=== PATIENT | female | born 1990 | race American Indian/Alaskan Native ===

== ENCOUNTER 2018-04-11 19:29 | Emergency (ER) | payer SELFPAY ==
[2018-04-11 21:17] LABS: Basophils % (Auto) 0.4 % (0.0-1.8); Hematocrit 34.5 % (30.3-42.9); Hemoglobin 10.9 gm/dl (10.1-14.3); Lymphocytes # (Auto) 1.4 K/mm3 (1.2-5.4); Lymphocytes % (Auto) 19.6 % (13.4-35.0); Mean Corpuscular HGB Conc 32 % (30-34); Mean Corpuscular Hemoglobin 27 pg (28-32); Mean Corpuscular Volume 84 fl (79-97); Monocytes # (Auto) 0.5 K/mm3 (0.0-0.8); Monocytes % (Auto) 7.1 % (0.0-7.3); Platelet Count 333 K/mm3 (140-440)
[2018-04-11 21:26] LABS: Alanine Aminotransferase 71 units/L (7-56); Albumin 5.1 g/dL (3.9-5); BUN/Creatinine Ratio 12; Blood Urea Nitrogen 14 mg/dL (7-17); Hemolysis Index 4
[2018-04-11 21:47] LABS: Bacteria,Urine 1+ /HPF (Negative); Bilirubin,Urine NEG (Negative); Blood,Urine NEG (Negative); Color,Urine Yellow (Yellow); Hyaline Casts,Urine 17 /LPF; Mucus,Urine 3+ /HPF
[2018-04-11 21:55] LABS: Benzodiazepines Screen,Urine PRESUMPTIVE NEGATIVE; Cocaine Screen,Urine PRESUMPTIVE NEGATIVE; Methadone Screen,Urine PRESUMPTIVE NEGATIVE; Opiate Screen,Urine PRESUMPTIVE NEGATIVE
[2018-04-11 22:11] LABS: Amphetamine Screen,Urine PRESUMPTIVE POSITIVE; Cannabinoid Screen,Urine PRESUMPTIVE POSITIVE
--- NOTE | 2018-04-11 22:12 | Emergency Department Report ---
ED Psych HPI - General Chief Complaint: Altered Mental Status Stated Complaint: FATIGUE Time Seen by Provider: 04/11/18 20:59 Source: patient Mode of arrival: Wheelchair - History of Present Illness Initial Comments: History obtained from nursing documentation. The patient likely has mental illness with known adverse reaction and rash to Abilify. For the last 7 days she's auditory hallucinations making her do stupid things like walking on the road without shoes burning her feet. It was noted that she had paranoia. The patient refuses to give further information. She states that she has a headache. MD Complaint: altered mental status, other - Related Data Allergies Allergy/AdvReac Type Severity Reaction Status Date / Time aripiprazole [From Abilify] AdvReac Rash Verified 04/11/18 20:18 ED Review of Systems ROS: Stated complaint: FATIGUE Other details as noted in HPI Comment: All other systems reviewed and negative Constitutional: denies: fever, malaise Cardiovascular: denies: chest pain ED Past Medical Hx - Social History Smoking Status: Current Every Day Smoker Substance Use Type: Marijuana ED Physical Exam - General Limitations: Physical Limitation General appearance: alert, in no apparent distress - Head Head exam: Present: atraumatic, normocephalic - Eye Eye exam: Present: normal appearance - ENT ENT exam: Present: mucous membranes moist - Neck Neck exam: Present: normal inspection. Absent: tenderness, meningismus - Respiratory Respiratory exam: Present: normal lung sounds bilaterally. Absent: respiratory distress, wheezes, rales, rhonchi - Cardiovascular Cardiovascular Exam: Present: regular rate, normal rhythm, normal heart sounds. Absent: bradycardia, tachycardia, systolic murmur, diastolic murmur, rubs, gallop - GI/Abdominal GI/Abdominal exam: Present: soft, normal bowel sounds. Absent: distended, tenderness, guarding, rebound - Extremities Exam Extremities exam: Present: normal inspection - Back Exam Back exam: Present: normal inspection - Neurological Exam Neurological exam: Present: alert, oriented X3 - Psychiatric Psychiatric exam: Present: agitated, flat affect, other (refuses to give much history. She has normal speech. She has normal purposeful movements.) - Skin Skin exam: Present: warm, dry, intact, normal color. Absent: rash ED Course Vital Signs 04/11/18 04/11/18 20:07 21:39 Temperature 98.7 F 98.6 F Pulse Rate 87 88 Respiratory 14 16 Rate Blood Pressure 110/71 Blood Pressure 112/76 [Left] O2 Sat by Pulse 100 99 Oximetry ED Medical Decision Making - Lab Data Result diagrams: 04/11/18 20:28 04/11/18 20:28 Laboratory Results - last 24 hr 04/11/18 04/11/18 04/11/18 20:28 20:28 21:20 WBC 7.3 RBC 4.10 Hgb 10.9 Hct 34.5 MCV 84 MCH 27 L MCHC 32 RDW 17.0 H Plt Count 333 Lymph % (Auto) 19.6 [place] % (Auto) 7.1 Eos % (Auto) 0.0 Baso % (Auto) 0.4 Lymph # 1.4 [place] # 0.5 Eos # 0.0 Baso # 0.0 Seg Neutrophils % 72.9 H Seg Neutrophils # 5.3 Sodium 138 Potassium 4.2 Chloride 97.3 L Carbon Dioxide 23 Anion Gap 22 BUN 14 Creatinine 1.2 Estimated GFR > 60 BUN/Creatinine Ratio 12 Glucose 77 Calcium 10.0 Total Bilirubin 0.80 AST 26 ALT 71 H Alkaline Phosphatase 57 Total Protein 8.1 Albumin 5.1 H Albumin/Globulin Ratio 1.7 Urine Color Yellow Urine Turbidity Clear Urine pH 5.0 Ur Specific [place] 1.017 Urine Protein 100 mg/dl Urine Glucose (UA) Neg Urine Ketones 20 Urine Blood Neg Urine Nitrite Neg Urine Bilirubin Neg Urine Urobilinogen 2.0 Ur Leukocyte Esterase Neg Urine WBC (Auto) 10.0 H Urine RBC (Auto) 5.0 U Epithel Cells (Auto) 4.0 Urine Bacteria (Auto) 1+ Hyaline Casts 17 Urine Mucus 3+ Urine Opiates Screen Urine Methadone Screen Ur Barbiturates Screen Ur Phencyclidine Scrn U Benzodiazepines Scrn Urine Cocaine Screen 04/11/18 21:20 WBC RBC Hgb Hct MCV MCH MCHC RDW Plt Count Lymph % (Auto) [place] % (Auto) Eos % (Auto) Baso % (Auto) Lymph # [place] # Eos # Baso # Seg Neutrophils % Seg Neutrophils # Sodium Potassium Chloride Carbon Dioxide Anion Gap BUN Creatinine Estimated GFR BUN/Creatinine Ratio Glucose Calcium Total Bilirubin AST ALT Alkaline Phosphatase Total Protein Albumin Albumin/Globulin Ratio Urine Color Urine Turbidity Urine pH Ur Specific [place] Urine Protein Urine Glucose (UA) Urine Ketones Urine Blood Urine Nitrite Urine Bilirubin Urine Urobilinogen Ur Leukocyte Esterase Urine WBC (Auto) Urine RBC (Auto) U Epithel Cells (Auto) Urine Bacteria (Auto) Hyaline Casts Urine Mucus Urine Opiates Screen Presumptive negative Urine Methadone Screen Presumptive negative Ur Barbiturates Screen Presumptive negative Ur Phencyclidine Scrn Presumptive negative U Benzodiazepines Scrn Presumptive negative Urine Cocaine Screen Presumptive negative Vital Signs - 24 hr 04/11/18 04/11/18 20:07 21:39 Temperature 98.7 F 98.6 F Pulse Rate 87 88 Respiratory 14 16 Rate Blood Pressure 110/71 Blood Pressure 112/76 [Left] O2 Sat by Pulse 100 99 Oximetry - Medical Decision Making Ms. Gilliland is a 27 yo female who probably mental illness who presents with acute psychosis and paranoia. She did speak to nursing staff. No indication of medical condition which needs further stabilization. She is awake and alert. She is not altered. She just does not cooperate with history taking. I do suspect contribution of possible drugs. UDS positive for amphetamine. Awaiting mental health consultation. Placed on 1013 for high risk of harming patient with poor insight. Patient is unable to cooperate which the plan. Ms. Gilliland is medically clear for psychiatric care. Critical care attestation.: If time is entered above; I have spent that time in minutes in the direct care of this critically ill patient, excluding procedure time. ED Disposition Clinical Impression: Acute psychosis Disposition: [id number]/[facility]-70 ANOTHER TYPE HLTHCARE Is pt being admited?: No Does the pt Need Aspirin: No Condition: Stable
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
[2018-04-13 02:10] LABS: HCG Qualitative,Urine Negative (Negative)
--- NOTE | 2018-04-13 17:40 | Progress Note ---
Subjective - Reason for Consult Consult date: 04/13/18 Reason for consult: psychiatric Requesting physician: GIOVANNI SIDDIQUI - Chief Complaint Chief complaint: " Hearing voices" Subjective history: 27-year-old female who presented to the emergency room complaining of auditory hallucinations commanding her. Patient was positive for methamphetamines and marijuana. Today patient stated that she feels "better" after she got some sleep. Patient reported that she had not slept in the last few days and is walking around and hot sun and that must have "made me delirious, and I passed out", was the reason that the patient gave her current presentation in the emergency room. She was minimizing her drug use. Today patient denied any suicidal or homicidal ideations and denies any auditory or visual hallucinations. Patient reported that she had recently relapsed on methamphetamine and has been using it for the last few days, to help her focus. Mental Status Exam - Vital signs Last Vital Signs Temp 98.2 F 04/13/18 10:00 Pulse 76 04/13/18 10:00 Resp 18 04/13/18 10:00 BP 93/52 04/13/18 10:00 Pulse Ox 100 04/13/18 10:00 - Exam Narrative exam: General Appearance: Casually dressed-hospital gown Attitude/Behavior: Cooperative, evasive, and guarded Sensorium: Distracted Orientation: Alert and oriented x 4 (person, place, time, and situation) Psychomotor and Musculoskeletal Activity: Ambulatory Mood: " Sad and down" Affect: Constricted Speech/Language: Regular rate and tone, delayed at times Thought Process: Circumstantial Though Content: Paranoid Perception: Denies. Internally preoccupied Concentration/Attention: Impaired Suicidal Ideation/Plan: Patient denies Homicidal Ideation/Plan: Patient denies Judgment: Variable Insight: Variable Assessment and Plan Hx of Schizoaffective Disorder. Methamphetamine use disorder. Patient is cooperative but evasive and guarded throughout the assessment. Although patient denies and attempts to minimize symptoms psychosis is evident. She reports improved energy, sleep, and appetite. She denies SI/HI. DDx: r/o Psychosis Recommendations/Plan: 1. Continue 1013 and reassess in 24 hours. 2. Gain collateral to determine proper disposition. 3. continue Seroquel 100mg po QHS mood/psychosis. Discussed metabolic side effects. Patient verbalizes understanding. 4. Will monitor psychosis, mood, sleep, appetite, compliance and side effects.
[2018-04-13 20:20] VITALS: BP 110/63
== END 2018-04-13 21:45 | disposition other institution (70) ==
LOC: EEVIPCON 19:29 → ED 19:29
DX: F23 Brief psychotic disorder (principal); F17.200 Nicotine dependence, unspecified, uncomplicated; F12.10 Cannabis abuse, uncomplicated; Z88.4 Allergy status to anesthetic agent
CPT/HCPCS: 36415; 80053; 80307; 81001; 81025; 85025; 99285; G0480; 80320